=== PATIENT | male | born 1985 | race American Indian/Alaskan Native ===

== ENCOUNTER 2017-10-05 10:06 | Emergency (ER) | payer OTHER ==
[2017-10-05 10:18] VITALS: TEMP 98.1
[2017-10-05 10:54] LABS: BASO # 0.01 K/mm3 (0.0-2.0); BASO % 0.3 % (0.0-3.0); EOS % 0.5 % (1.5-5.0); GRAN # 1.37 (1.4-6.5); GRAN % 36.7 % (50.0-68.0); HEMATOCRIT 39.8 % (42.0-52.0); LYMPH # 1.9 (1.2-3.4); MEAN CELL VOLUME 86.7 fl (80.0-105.0); MEAN CORPUSCULAR HEMOGLOBIN 30.5 pg (25.0-35.0); MEAN CORPUSCULAR HGB CONC 35.2 g/dl (31.0-37.0); MEAN PLATELET VOLUME 9.6 fl (7.0-11.0); MONO # 0.4 (0.1-0.6); MONO % 10.5 % (1.0-6.0); RED CELL DISTRIBUTION WIDTH 12.2 % (11.5-14.5); WHITE BLOOD COUNT 3.7 10^3/ul (4.5-11.0)
[2017-10-05 11:07] LABS: ALB/GLOB RATIO 1.3 (1.1-1.8); ALKALINE PHOSPHATASE 41 U/L (38-126); ALT/SGPT 28 U/L (7-56); AST/SGOT 22 U/L (17-59); BILIRUBIN,TOTAL 1.1 mg/dL (0.2-1.3); BLOOD UREA NITROGEN 18 mg/dL (7-21); CALCIUM 9.5 mg/dL (8.4-10.5); CARBON DIOXIDE 32 mmol/L (21-33); CHLORIDE 103 mmol/L (98-107); GFR AFRICAN-AMERICAN > 60; GLUCOSE,RANDOM 95 mg/dL (70-110); MAGNESIUM 1.8 mg/dL (1.7-2.2); POTASSIUM 3.9 mmol/L (3.6-5.0); SODIUM 143 mmol/L (132-148); TOTAL PROTEIN 7.5 g/dL (5.8-8.3)
--- NOTE | 2017-10-05 11:16 | RAD ---
HISTORY: chest pain COMPARISON: No prior. FINDINGS: LUNGS: No active pulmonary disease. PLEURA: No significant pleural effusion identified, no pneumothorax apparent. CARDIOVASCULAR: Normal. OSSEOUS STRUCTURES: No significant abnormalities. VISUALIZED UPPER ABDOMEN: Normal. OTHER FINDINGS: None. IMPRESSION: No active disease.
--- NOTE | 2017-10-05 11:19 | ED PDOC ---
Arrival/HPI - General Chief Complaint: Chest Pain Time Seen by Provider: 10/05/17 10:09 Historian: Patient - History of Present Illness Narrative History of Present Illness (Text): 10/05/17 10:19 A 31 year old male presents to the emergency department complaining of sharp left-sided chest pain. Patient reports pain increases with movement. Patient denies any fever, cough, shortness of breath, abdominal pain, any trauma, or any other complaints. No PMD Symptom Onset: Sudden Symptom Course: Unchanged Past Medical History - Provider Review Nursing Documentation Reviewed: Yes - Cardiac Hx Cardiac Disorders: Yes Hx Heart Murmur: Yes - Pulmonary Hx Respiratory Disorders: No - Neurological Hx Neurological Disorder: No - HEENT Hx HEENT Disorder: No - Renal Hx Renal Disorder: No - Endocrine/Metabolic Hx Endocrine Disorders: No - Hematological/Oncological Hx Blood Disorders: No - Integumentary Hx Dermatological Disorder: No - Musculoskeletal/Rheumatological Hx Musculoskeletal Disorders: No - Gastrointestinal Hx Gastrointestinal Disorders: No - Genitourinary/Gynecological Hx Genitourinary Disorders: No - Psychiatric Hx Psychophysiologic Disorder: No Hx Substance Use: No - Surgical History Other/Comment: Oral Family/Social History - Physician Review Nursing Documentation Reviewed: Yes Family/Social History: No Known Family HX Smoking Status: Never Smoked Hx Alcohol Use: Yes Frequency of alcohol use: Socially Hx Substance Use: No Allergies/Home Meds Allergies/Adverse Reactions: Allergies No Known Allergies Allergy (Verified 10/05/17 10:19) Review of Systems - Physician Review All systems were reviewed & negative as marked: Yes - Review of Systems Constitutional: absent: Fevers, Other (no trauma) Respiratory: absent: SOB, Cough Cardiovascular: Chest Pain (sharp left-sided chest pain) Gastrointestinal: absent: Abdominal Pain Physical Exam Vital Signs Temp Pulse Resp BP Pulse Ox 10/05/17 12:04 63 18 118/67 100 10/05/17 10:24 98.1 F 78 17 120/69 98 10/05/17 10:14 98.1 F 70 18 120/69 100 Medical Decision Making ED Course and Treatment: 10/05/17 10:22 Impression: 31 year old male with sharp left-sided chest pain. Physical exam shows point tenderness to anterior left 10th rib, no deformity. Plan: -- EKG -- Chest X-ray -- Labs -- Reassess and disposition Progress Notes: EKG: Ordered, reviewed, and independently interpreted the EKG. Rate : 69 BPM Rhythm : NSR Interpretation : No ST-segment elevations or depressions, no T-wave inversions, normal intervals. Comparison : No previous EKG for comparison. 10/05/2017 11:14 Chest X-ray IMPRESSION: No active disease. Dictator: Tera Farmer MD - Lab Interpretations Lab Results: 10/05/17 10:45 10/05/17 10:45 Lab Results 10/05/17 10:45: Sodium 143, Potassium 3.9, Chloride 103, Carbon Dioxide 32, Anion Gap 11, BUN 18, Creatinine 1.3, Est GFR ( Amer) > 60, Est GFR (Non- Af Amer) > 60, Random Glucose 95, Calcium 9.5, Magnesium 1.8, Total Bilirubin 1.1, AST 22, ALT 28, Alkaline Phosphatase 41, Lactate Dehydrogenase 409, Total Creatine Kinase 148, Troponin I < 0.01, Total Protein 7.5, Albumin 4.2, Globulin 3.3, Albumin/Globulin Ratio 1.3 10/05/17 10:45: D-Dimer, Quantitative < 200 10/05/17 10:45: WBC 3.7 L, RBC 4.59, Hgb 14.0, Hct 39.8 L, MCV 86.7, MCH 30.5, MCHC 35.2, RDW 12.2, Plt Count 175, MPV 9.6, Gran % 36.7 L, Lymph % (Auto) 52.0 H, Rice % (Auto) 10.5 H, Eos % (Auto) 0.5 L, Baso % (Auto) 0.3, Gran # 1.37 L, Lymph # 1.9, Rice # 0.4, Eos # 0.0, Baso # 0.01 I have reviewed the lab results: Yes - RAD Interpretation Radiology Orders: 10/05/17 10:22 CHEST PORTABLE [RAD] Stat - Medication Orders Current Medication Orders: Discontinued Medications Cyclobenzaprine HCl (Flexeril) 10 mg PO STAT STA Stop: 10/05/17 10:53 Last Admin: 10/05/17 11:30 Dose: 10 mg Ketorolac Tromethamine (Toradol) 30 mg IVP STAT STA Stop: 10/05/17 10:53 Last Admin: 10/05/17 11:30 Dose: 30 mg MAR Pain Assessment Document 10/05/17 11:30 EQ (Rec: 10/05/17 11:30 EQ [facility] [id number]) Pain Reassessment Is this a pain reassessment? No Sleep Is patient sleeping during reassessment? No Presence of Pain Presence of Pain Yes IVP Administration Document 10/05/17 11:30 EQ (Rec: 10/05/17 11:30 EQ [facility] [id number]) Charges for Administration # of IVP Administrations 1 - Scribe Statement The provider has reviewed the documentation as recorded by the Bari Wagner Provider Scribe Attestation: All medical record entries made by the Scribe were at my direction and personally dictated by me. I have reviewed the chart and agree that the record accurately reflects my personal performance of the history, physical exam, medical decision making, and the department course for this patient. I have also personally directed, reviewed, and agree with the discharge instructions and disposition. Disposition/Present on Arrival - Present on Arrival Any Indicators Present on Arrival: No History of DVT/PE: No History of Uncontrolled Diabetes: No Urinary Catheter: No History of Decub. Ulcer: No History Surgical Site Infection Following: None - Disposition Have Diagnosis and Disposition been Completed?: Yes Diagnosis: Non-cardiac chest pain Disposition: HOME/ ROUTINE Disposition Time: 12:00 Condition: GOOD Discharge Instructions (ExitCare): Chest Pain (ED) Additional Instructions: Thank you for letting us take care of you today. The emergency medical care you received today was directed at your acute symptoms. If you were prescribed any medication, please fill it and take as directed. It may take several days for your symptoms to resolve. Return to the Emergency Department if your symptoms worsen, do not improve, or if you have any other problems. Please contact your doctor or call one of the physicians/clinics you have been referred to that are listed on the Patient Visit Information form that is included in your discharge packet. Bring any paperwork you were given at discharge with you along with any medications you are taking to your follow up visit. Our treatment cannot replace ongoing medical care by a primary care provider (PCP) outside of the emergency department. Thank you for allowing the [facility] team to be part of your care today. Follow up in 3-5 days for outpatient care and management. Prescriptions: Cyclobenzaprine [Cyclobenzaprine HCl] 10 mg PO Q8 PRN #20 tab PRN Reason: Muscle Spasm Ibuprofen [Motrin] 600 mg PO Q6 PRN #20 tab PRN Reason: Pain, Moderate (4-7) Referrals: Gideon Crabtree MD [Staff Provider] - Follow up with primary Forms: [employer] (Telugu)
[2017-10-05 11:28] LABS: TROPONIN I < 0.01 ng/mL
[2017-10-05 12:04] VITALS: BP 118/67; PULSE 63; RESP 18; O2SAT 100
--- NOTE | 2017-10-05 23:35 | CARD ---
APPROVED REPORT EKG Measurement Heart [id number] <Conclusion> Normal sinus rhythm Normal ECG
== END 2017-10-05 12:54 | disposition home or self-care (01) ==
LOC: ED 10:06
DX: R07.89 Other chest pain (principal)
CPT/HCPCS: 71010; 80053; 82550; 83615; 83735; 84484; 85025; 85378; 93005; 96374; 99283; J1885